=== PATIENT | male | born 1945 | race Two or more races ===

== ENCOUNTER 2022-12-28 17:06 | Inpatient (IN) | payer OTHER ==
[~2022-12-28] VITALS: Ht 165.1 cm; Wt 77.3 kg
[~2022-12-28 17:06] MED LIST: AMLO1TAB23 PO; ATOR10TA52 PO; CIPR-173 PO; GLIM-38 PO; LISI20TA56 PO
[2022-12-28 18:01] LABS: Basophils # (auto) 0.2 10 ^3/uL (0-0.2); Basophils % (auto) 2.5 % (0.0-2.0); Eosinophils # (auto) 0.5 10 ^3/uL (0-0.8); Eosinophils % (auto) 7.5 % (0.0-7.0); Hematocrit 40.5 % (41.0-53.0); Hemoglobin 13.4 g/dL (13.5-17.5); Lymphocytes # (auto) 2.1 10 ^3/uL (0.4-5.4); Lymphocytes % (auto) 32.6 % (10.0-50.0); Mean Corpuscular Hemoglobin 28.2 pg (28.0-32.0); Mean Corpuscular Hgb Conc. 33.1 g/dL (32.0-36.0); Mean Corpuscular Volume 85.2 fL (80.0-100.0); Monocytes # (auto) 0.6 10 ^3/uL (0-1.3); Monocytes % (auto) 9.6 % (0.0-12.0); Neutrophils % (auto) 47.8 % (37.0-80.0); Nucleated Red Blood Cells % 0.2 %; Red Blood Cells 4.75 10^6/uL (4.5-5.90); Red Cell Distribution Width 14.3 % (11.8-14.3); White Blood Cell 6.4 10^3/uL (4.4-10.8)
[2022-12-28 18:16] LABS: Albumin 3.7 g/dL (3.4-5.0); Calcium 8.4 mg/dL (8.5-10.1)
[2022-12-28 18:20] LABS: Bilirubin, Total 0.3 mg/dL (0.2-1.0); Total Protein 7.3 g/dL (6.4-8.2)
[2022-12-28 19:30] VITALS: PULSE 57; RESP 19; O2SAT 96
[2022-12-28] MEDS ORDERED: CLOPIDOGREL BISULFATE 75 MG TAB PO ONE (19:45)
[2022-12-28] MEDS ORDERED: NITROGLYCERIN 0.4 MG SL TAB SL PRN (20:30)
[2022-12-28] MEDS ORDERED: MORPHINE SULFATE INJ 2 MG/ml SYRG IV PRN ×2 (20:30)
[2022-12-28] MEDS ORDERED: HYDROcodone-ACET 5/325MG TAB PO PRN (20:30)
[2022-12-28] MEDS ORDERED: ACETAMINOPHEN 325 MG TAB PO PRN (20:30)
[2022-12-28] MEDS ORDERED: DEXTROSE (50%) 50ML SYRG IV PRN (20:45)
[2022-12-28] MEDS ORDERED: SODIUM CHLORIDE 0.9% 1,000 ML IV ONE (21:00)
[2022-12-28] MEDS: InsuLIN REG 1unit/0.01ml Soln (100units/ml) SC SCH (22:00)
[2022-12-28] MEDS: ACCU-CHEK COMFORT CURVE STRIP VI SCH (22:19)
[2022-12-28] MEDS: ATORVASTATIN 20 MG TAB PO SCH (22:23)
[2022-12-29 05:32] LABS: Albumin 3.2 g/dL (3.4-5.0); Anion Gap 4 (5-15); Calcium 8.2 mg/dL (8.5-10.1); Carbon Dioxide 24 mmol/L (21-32); Chloride 113 mmol/L (98-107); Potassium 4.7 mmol/L (3.5-5.1); Sodium 141 mmol/L (136-145)
[2022-12-29 05:37] LABS: Basophils # (auto) 0.1 10 ^3/uL (0-0.2); Basophils % (auto) 0.9 % (0.0-2.0); Eosinophils # (auto) 0.4 10 ^3/uL (0-0.8); Eosinophils % (auto) 6.8 % (0.0-7.0); Hematocrit 38.7 % (41.0-53.0); Hemoglobin 12.9 g/dL (13.5-17.5); Lymphocytes # (auto) 2.7 10 ^3/uL (0.4-5.4); Lymphocytes % (auto) 41.3 % (10.0-50.0); Mean Corpuscular Hemoglobin 28.4 pg (28.0-32.0); Mean Corpuscular Hgb Conc. 33.2 g/dL (32.0-36.0); Mean Corpuscular Volume 85.5 fL (80.0-100.0); Monocytes # (auto) 0.9 10 ^3/uL (0-1.3); Monocytes % (auto) 13.7 % (0.0-12.0); Neutrophils # (auto) 2.4 10 ^3/uL (1.6-8.6); Neutrophils % (auto) 37.3 % (37.0-80.0); Nucleated Red Blood Cells % 0.1 %; Red Blood Cells 4.53 10^6/uL (4.5-5.90); Red Cell Distribution Width 14.1 % (11.8-14.3); White Blood Cell 6.4 10^3/uL (4.4-10.8)
[2022-12-29 05:39] LABS: Alanine Aminotransferase 20 U/L (16-61); Alkaline Phosphatase 73 U/L (45-117); Aspartate Aminotransferase 15 U/L (15-37); BUN/Creatinine Ratio 16.6 (10.0-20.0); Bilirubin, Total 0.3 mg/dL (0.2-1.0); Blood Urea Nitrogen 28 mg/dL (7-18); Cholesterol 183 mg/dL (< 200); GFR African American 51 mL/min; GFR Non-African American 42 mL/min; Glucose 103 mg/dL (74-106); HDL Cholesterol 24 mg/dL (40-59); Total Protein 6.6 g/dL (6.4-8.2); Triglycerides 534 mg/dL (< 150)
[2022-12-29] MEDS: InsuLIN REG 1unit/0.01ml Soln (100units/ml) SC SCH ×4 (06:50→22:00)
[2022-12-29] MEDS: ACCU-CHEK COMFORT CURVE STRIP VI SCH ×4 (06:50→22:00)
[2022-12-29 08:00] VITALS: PULSE 61; RESP 16; O2SAT 98
[2022-12-29] MEDS: CLOPIDOGREL BISULFATE 75 MG TAB PO SCH (09:45)
[2022-12-29] MEDS: HCTZ 25 MG TAB PO SCH (09:47)
[2022-12-29] MEDS: LISINOPRIL 20 MG TAB PO SCH (09:48)
[2022-12-29] MEDS ORDERED: FAMOTIDINE 20 MG TAB PO SCH (10:00)
[2022-12-29 17:00] VITALS: BP 154/62; PULSE 57; RESP 17; TEMP 97.5; O2SAT 98
[2022-12-29 20:00] VITALS: PULSE 55; PULSE 58; RESP 19
[2022-12-29 22:00] VITALS: BP 164/74; PULSE 60; RESP 18; TEMP 98; O2SAT 99
[2022-12-29] MEDS: ATORVASTATIN 20 MG TAB PO SCH (22:00)
[2022-12-30 05:00] VITALS: BP 130/62; PULSE 58; RESP 18; TEMP 97.9; O2SAT 99
[2022-12-30] MEDS: ACCU-CHEK COMFORT CURVE STRIP VI SCH ×2 (05:54→12:05)
[2022-12-30] MEDS: InsuLIN REG 1unit/0.01ml Soln (100units/ml) SC SCH ×2 (05:54→11:30)
[2022-12-30 07:01] LABS: Basophils # (auto) 0.1 10 ^3/uL (0-0.2); Basophils % (auto) 0.8 % (0.0-2.0); Eosinophils # (auto) 0.4 10 ^3/uL (0-0.8); Hematocrit 39.9 % (41.0-53.0); Hemoglobin 13.2 g/dL (13.5-17.5); Lymphocytes # (auto) 2.4 10 ^3/uL (0.4-5.4); Lymphocytes % (auto) 34.3 % (10.0-50.0); Mean Corpuscular Hemoglobin 28.1 pg (28.0-32.0); Mean Corpuscular Hgb Conc. 32.9 g/dL (32.0-36.0); Mean Corpuscular Volume 85.4 fL (80.0-100.0); Monocytes # (auto) 0.9 10 ^3/uL (0-1.3); Monocytes % (auto) 12.1 % (0.0-12.0); Neutrophils # (auto) 3.3 10 ^3/uL (1.6-8.6); Neutrophils % (auto) 46.8 % (37.0-80.0); Nucleated Red Blood Cells % 0.1 %; Red Blood Cells 4.67 10^6/uL (4.5-5.90); Red Cell Distribution Width 14.1 % (11.8-14.3)
[2022-12-30 07:02] LABS: Potassium 4.7 mmol/L (3.5-5.1)
[2022-12-30 07:10] LABS: Calcium 8.5 mg/dL (8.5-10.1)
[2022-12-30 08:00] VITALS: BP 142/70; PULSE 53; PULSE 54; RESP 20; TEMP 97.7; O2SAT 99
[2022-12-30] MEDS: CLOPIDOGREL BISULFATE 75 MG TAB PO SCH (09:43)
[2022-12-30] MEDS: HCTZ 25 MG TAB PO SCH (09:43)
[2022-12-30] MEDS: LISINOPRIL 20 MG TAB PO SCH (09:43)
[2022-12-30 10:24] VITALS: PULSE 54
[2022-12-30 12:00] VITALS: BP 137/70; PULSE 56; RESP 20; TEMP 97.7; O2SAT 99
[2022-12-30] MEDS ORDERED: HYDR25TA5 PO (15:27)
[2022-12-30] MEDS ORDERED: CLOP75TA70 PO (15:27)
[2022-12-30] MEDS ORDERED: ATOR10TA52 PO (15:27)
[2022-12-30 16:00] VITALS: BP 148/70; PULSE 58; RESP 20; TEMP 97.8; O2SAT 99
[2022-12-30 17:03] VITALS: BP 142/70; PULSE 56; RESP 20; TEMP 36.5; O2SAT 99
== END 2022-12-30 19:17 | disposition home health service (06) | DRG 91 ==
LOC: ER 17:06 → TELE 20:38 → TELE-WESTW 12-29 15:15
PROVIDERS: ADMIT Nurse Practitioner Family; ATTEND Internal Medicine
DX: R20.0 Anesthesia of skin (principal); I21.A1 Myocardial infarction type 2; N17.9 Acute kidney failure, unspecified; E78.5 Hyperlipidemia, unspecified; E11.22 Type 2 diabetes mellitus with diabetic chronic kidney disease; I12.9 Hypertensive chronic kidney disease with stage 1 through stage 4 chronic kidney disease, or unspecified chronic kidney disease; I35.0 Nonrheumatic aortic (valve) stenosis; N18.30 Chronic kidney disease, stage 3 unspecified; R41.82 Altered mental status, unspecified; Z88.6 Allergy status to analgesic agent
CPT/HCPCS: 36415; 70450; 70551; 80048; 80053; 80061; 82962; 83036; 84443; 84484; 85025; 93005; 93306; 93886; 97163; 99291; G0378

== ENCOUNTER 2023-07-13 00:53 | Emergency (ER) | payer OTHER ==
[~2023-07-13] VITALS: Ht 165.1 cm; Wt 80.0 kg
[~2023-07-13 00:53] MED LIST changes: -AMLO1TAB23 PO; -CIPR-173 PO; +CLOP75TA70 PO; +HYDR25TA5 PO
[2023-07-13 01:40] LABS: Basophils # (auto) 0.1 10 ^3/uL (0-0.2); Basophils % (auto) 0.3 % (0.0-2.0); Eosinophils # (auto) 0.2 10 ^3/uL (0-0.8); Eosinophils % (auto) 1.1 % (0.0-7.0); Hematocrit 44.5 % (41.0-53.0); Hemoglobin 14.3 g/dL (13.5-17.5); Lymphocytes # (auto) 1.4 10 ^3/uL (0.4-5.4); Lymphocytes % (auto) 8.7 % (10.0-50.0); Mean Corpuscular Hemoglobin 28.3 pg (28.0-32.0); Mean Corpuscular Hgb Conc. 32.1 g/dL (32.0-36.0); Mean Corpuscular Volume 87.9 fL (80.0-100.0); Monocytes # (auto) 1.2 10 ^3/uL (0-1.3); Monocytes % (auto) 7.4 % (0.0-12.0); Neutrophils # (auto) 13.6 10 ^3/uL (1.6-8.6); Neutrophils % (auto) 82.5 % (37.0-80.0); Nucleated Red Blood Cells % 0.1 %; Red Blood Cells 5.07 10^6/uL (4.5-5.90); Red Cell Distribution Width 14.5 % (11.8-14.3); White Blood Cell 16.5 10^3/uL (4.4-10.8)
[2023-07-13 01:49] LABS: Chloride 104 mmol/L (98-107); Potassium 4.5 mmol/L (3.5-5.1); Sodium 134 mmol/L (136-145)
[2023-07-13 01:50] LABS: Anion Gap 9 (5-15); Carbon Dioxide 21 mmol/L (20-30)
[2023-07-13 01:51] LABS: Calcium 9.1 mg/dL (8.7-10.4)
[2023-07-13 01:55] LABS: Blood Urea Nitrogen 23 mg/dL (9-23); Glucose 94 mg/dL (74-106)
[2023-07-13 02:00] VITALS: PULSE 57; RESP 15; O2SAT 99
[2023-07-13 03:00] VITALS: BP 145/65; PULSE 56; RESP 16; O2SAT 96
== END 2023-07-13 03:12 | disposition home or self-care (01) ==
LOC: ER 00:53 → EDBD 00:53 → EDUNIT# 00:53 → ER 03:10
DX: R42 Dizziness and giddiness (principal); E11.649 Type 2 diabetes mellitus with hypoglycemia without coma; R00.1 Bradycardia, unspecified; I10 Essential (primary) hypertension; R41.82 Altered mental status, unspecified; Z88.6 Allergy status to analgesic agent; Z86.73 Personal history of transient ischemic attack (TIA), and cerebral infarction without residual deficits
CPT/HCPCS: 36415; 71045; 80048; 82962; 83880; 84484; 85025; 93005